=== PATIENT | male | born 1985 | race Caucasian/White ===

== ENCOUNTER 2018-07-04 19:00 | Emergency (ER) | payer OTHER ==
[2018-07-04 19:15] VITALS: BP 122/70
[2018-07-04] MEDS ORDERED: PENICILLIN VK 250MG PREPACK#6 BTL TAKEHOME ONE (19:36)
--- NOTE | 2018-07-04 19:36 | EDPHY ---
H & P Time Seen by Provider: 07/04/18 19:19 HPI/ROS: CHIEF COMPLAINT: Possible tooth abscess HISTORY OF PRESENT ILLNESS: Patient is a 32-year-old male presents emergency department with the possible tooth abscess. Patient states that he broke his right lower tooth some time ago. A couple of weeks ago he had increased pain. He saw a dentist who told him he could have a root canal or extraction. Patient had a follow-up appointment which is still pending. Patient states he did not have money for the root canal. Patient has had increased pain in surrounding that tooth. His pain is severe. It is worse when he touches the tooth. He has had no fevers or chills. REVIEW OF SYSTEMS: 10 systems were reveiwed and are negative with the exception of the elements mentioned in the history of present illness. Past Medical/Surgical History: Includes asthma Smoking Status: Never smoked Physical Exam: 36.8, 122/70, 66, 20, 96% on room air General Appearance: Alert and no distress. Head: Pupils equal. Normal. ENT: Patient's pharynx is normal. There is no swelling. Uvula is midline. The patient's right lower gum is normal with no swelling. There is multiple dental fractures. The right lower posterior molar is fractured with no discharge. It is tender to touch. Respiratory: No respiratory distress. Cardiac: regular rate and rhythm. Extremities: Full range of motion, normal appearing. Skin: No rashes or lesions. Neuro: Alert. Normal mood and affect. Constitutional: Initial Vital Signs Temperature (C) 36.8 C 07/04/18 19:12 Heart Rate 66 07/04/18 19:12 Respiratory Rate 20 07/04/18 19:12 Blood Pressure 122/70 H 07/04/18 19:12 O2 Sat (%) 96 07/04/18 19:12 O2 Delivery Mode Room Air Allergies/Adverse Reactions: No Known Allergies Allergy (Unverified 07/04/18 19:12) Home Medications: Medication Instructions Recorded Hydrocodone/APAP 5/325 [Mousie 1 - 2 tab PO Q4 #11 tab 07/04/18 5/325 (RX)] Penicillin V Potassium 500 mg PO TID 10 Days tablet 07/04/18 Medical Decision Making ED Course/Re-evaluation: In the emergency department I discussed etiologies with the patient. I answered all his questions. I informed that antibiotics are only a temporizing measure. The only solution to his dental pain a potential abscesses to seejoyce rucker for possible root canal or extraction. Patient understands my instructions. The patient was given a prescription for penicillin as well as hydrocodone. Patient was informed that he would not receive further pain medication from the emergency department. Differential Diagnosis: My differential includes but is not limited to dental fracture, dental abscess, dental decay Departure - Departure Disposition: Home, Routine, Self-Care Clinical Impression: Toothache Condition: Good Instructions: Toothache (ED), Dental Abscess (ED) Additional Instructions: Take your entire course of antibiotics. Call your dentist tomorrow to make an appointment. You need to be seen in the next few days to have your issue care for by tenderness. You need to feel your prescription of antibiotics. You also given antibiotics from the emergency department. Referrals: [facility] [Outside] - 2-3 days without fail [facility] [Outside] - 2-3 days, if not improved Prescriptions: Hydrocodone/APAP 5/325 [Mousie 5/325 (RX)] 1 - 2 tab PO Q4 #11 tab Penicillin V Potassium 500 mg PO TID 10 Days tablet
[2018-07-04] MEDS ORDERED: HYDROCOD/APAP 5/325 PREPACK#6 BTL TAKEHOME ONE (19:37)
== END 2018-07-04 19:51 | disposition home or self-care (01) ==
DX: K08.89 Other specified disorders of teeth and supporting structures (principal)